=== PATIENT | male | born 1995 | race Caucasian/White ===

== ENCOUNTER 2018-10-19 16:48 | Emergency (ER) | payer OTHER ==
[~2018-10-19] VITALS: Ht 175.3 cm; Wt 60.0 kg
[2018-10-19] MEDS ORDERED: LORazepam 2 MG/ML, 1ML IVPush ONE (17:00)
[2018-10-19] MEDS ORDERED: LORazepam 2 MG/ML, 1ML ONE (17:04)
[2018-10-19 17:23] VITALS: BP 124/83
[2018-10-19] MEDS ORDERED: SERTRALINE (17:31)
[2018-10-19] MEDS ORDERED: HYDROXYZINE (17:31)
[2018-10-19] MEDS ORDERED: PRAZOSIN (17:32)
== END 2018-10-19 18:36 | disposition home or self-care (01) ==
LOC: EDSEX 16:48 → ED 18:05
DX: F41.1 Generalized anxiety disorder (principal); R06.4 Hyperventilation
CPT/HCPCS: 96374; 99284; J2060

== ENCOUNTER 2018-10-22 16:01 | Emergency (ER) | payer OTHER ==
[~2018-10-22] VITALS: Ht 175.3 cm; Wt 65.2 kg
[~2018-10-22 16:01] MED LIST: HYDROXYZINE; PRAZOSIN; SERTRALINE
[2018-10-22] MEDS ORDERED: LORazepam 1MG TABLET ONE (16:41)
[2018-10-22 16:54] LABS: BASOPHILS # (AUTO) 0.03 x10^3/uL (0-0.1); BASOPHILS % (AUTO) 0 % (0-1); EOSINOPHILS # (AUTO) 0.11 x10^3/uL (0-0.4); EOSINOPHILS % (AUTO) 1 % (1-7); LYMPHOCYTES # (AUTO) 1.85 x10^3/uL (1-3.4); LYMPHOCYTES % (AUTO) 16 % (22-44); MD NO; MEAN CORPUSCULAR HEMOGLOBIN 29.3 pg (27.5-34.5); MEAN CORPUSCULAR HGB CONC 33.4 g/dL (33.2-36.2); MEAN CORPUSCULAR VOLUME 87.7 fL (81-97); MEAN PLATELET VOLUME 9.4 fL (7.4-10.4); MONOCYTES # (AUTO) 0.64 x10^3/uL (0.2-0.8); MONOCYTES % (AUTO) 5 % (2-9); NEUTROPHILS # (AUTO) 9.24 x10^3/uL (1.8-6.8); NEUTROPHILS % (AUTO) 78 % (42-75); PLATELET COUNT 246 x10^3/uL (130-400); RED BLOOD COUNT 5.33 x10^6/uL (4.38-5.82); RED CELL DISTRIBUTION WIDTH 14.2 % (9.4-14.8)
[2018-10-22] MEDS ORDERED: LORazepam 1MG TABLET PO ONE (17:00)
[2018-10-22 17:06] LABS: ALBUMIN 4.3 g/dL (3.4-5.0); ANION GAP 10 mmol/L (5-15); CALCIUM 9.1 mg/dL (8.5-10.1); CHLORIDE 110 mmol/L (98-107); CREATININE 1.01 mg/dL (0.7-1.3)
[2018-10-22 17:26] VITALS: BP 119/79
== END 2018-10-22 18:08 | disposition home or self-care (01) ==
LOC: ED 16:38
DX: F41.1 Generalized anxiety disorder (principal); R06.4 Hyperventilation
CPT/HCPCS: 36415; 80048; 82040; 85025; 93005; 99284